=== PATIENT | male | born 1985 | race Caucasian/White ===

== ENCOUNTER 2016-11-04 22:41 | Emergency (ER) | payer OTHER ==
[2016-11-04 22:47] VITALS: BMI 29.9
[2016-11-04 22:50] VITALS: BP 133/80; PULSE 77; RESP 18; TEMP 98.1; O2SAT 98
[2016-11-04] MEDS ORDERED: Phenylephrine 0.5% Nasal Spray NAS STA (23:03)
--- NOTE | 2016-11-04 23:09 | ED PDOC ---
HPI: CCC, URI, Sore Throat Time Seen by Provider: 11/04/16 23:07 Chief Complaint (Nursing): ENT Problem Chief Complaint (Provider): epistaxis History Per: Patient (31 y/o male here for epistaxis today. Patient states he manipulated nose digitally and subsequently have heavy nose bleed. Has had intermittent h/o epistaxis in past but not recent. No trauma otherwise. No cocaine use.) Past Medical History Reviewed: Historical Data, Nursing Documentation, Vital Signs Vital Signs: Last Vital Signs Temp 98.1 F 11/04/16 22:48 Pulse 77 11/04/16 22:48 Resp 18 11/04/16 22:48 BP 133/80 11/04/16 22:48 Pulse Ox 98 11/04/16 22:48 - Home Medications Home Medications: Ambulatory Orders Medication Instructions Recorded Azithromycin [Zithromax Z-Antoni] 250 mg PO DAILY #5 tab 08/29/14 Prednisone 2 tab PO DAILY #10 tab 08/29/14 Ibuprofen 600 mg PO Q8H PRN #60 tab 09/06/15 Oseltamivir Phosphate [Tamiflu] 75 mg PO BID #10 capsule 09/06/15 Promethazine HCl/Codeine 5 ml PO Q6H PRN #120 ml 09/06/15 [Promethazine HCl-Codeine Phosphate 10 mg/5 ml] Naproxen [Naprosyn Tab] 375 mg PO Q8 PRN #21 tab 08/24/16 diaZEpam [Valium] 5 mg PO Q6 PRN #6 tab 08/24/16 - Allergies Allergies/Adverse Reactions: Allergies Allergy/AdvReac Type Severity Reaction Status Date / Time No Known Allergies Allergy Verified 11/04/16 22:47 Review of Systems ROS Statement: Except As Marked, All Systems Reviewed And Found Negative ENT: Positive for: Other (nosebleed) Physical Exam - Reviewed Nursing Documentation Reviewed: Yes Vital Signs Reviewed: Yes - Physical Exam Appears: Positive for: Well, Non-toxic, No Acute Distress Head Exam: Positive for: ATRAUMATIC, NORMAL INSPECTION, NORMOCEPHALIC Skin: Positive for: Normal Color, Warm, DRY Eye Exam: Positive for: EOMI, Normal appearance, PERRL ENT: Negative for: Normal ENT Inspection ( small amount of bleeding noted anterior right nare medial aspect) Neck: Positive for: Normal, Painless ROM Cardiovascular/Chest: Positive for: Regular Rate, Rhythm Respiratory: Positive for: CNT, Normal Breath Sounds Gastrointestinal/Abdominal: Positive for: Normal Exam, Bowel Sounds, Soft Back: Positive for: Normal Inspection Extremity: Positive for: Normal ROM Neurologic/Psych: Positive for: Alert, Oriented - ECG O2 Sat by Pulse Oximetry: 98 - Progress ED Course And Treament: Neosynephrine 0.5% soaked guaze placed in bilateral nare in ED with control of bleeding. Disposition - Clinical Impression Clinical Impression: Epistaxis - Patient ED Disposition Is Patient to be Admitted: No - Disposition Referrals: Ry Kamara MD [Staff Provider] - Disposition: Routine/Home Disposition Time: 23:09 Condition: FAIR Instructions: Nosebleed (ED)
== END 2016-11-04 23:58 | disposition home or self-care (01) ==
LOC: H.ER 22:41
DX: R04.0 Epistaxis (principal)

== ENCOUNTER 2016-12-13 21:21 | Emergency (ER) | payer OTHER ==
[2016-12-13 21:22] VITALS: BMI 29.9
[2016-12-13] MEDS ORDERED: diaZEpam 10 mg/2 ml Inj IM ONE (21:46)
[2016-12-13 21:49] VITALS: BP 127/77; PULSE 75; RESP 16; TEMP 99.1; O2SAT 100
--- NOTE | 2016-12-13 21:49 | ED PDOC ---
HPI: General Adult Time Seen by Provider: 12/13/16 21:30 Chief Complaint (Nursing): Upper Extremity Problem/Injury Chief Complaint (Provider): Right neck spasm History Per: Patient History/Exam Limitations: no limitations Onset/Duration Of Symptoms: Hrs Have you had recent travel within the past 21 days to any of the following countries: [place], [place], [place] or [place]?: No Current Symptoms Are (Timing): Still Present Additional History Per: Patient Additional Complaint(s): The pt is a 31yo male, no pertinent PMHx, presents to the ED for evaluation of spasms on his right neck since earlier today. Pt reports he had the first episode earlier this morning while attempting to shave his head with following episodes worsening throughout the day. Pt reports he took Motrin 800 mg and a muscle relaxer (unknown name) with no relief. He reports some associated headache as well as nausea due to the pain. Pt offers no additional medical complaints. Past Medical History Reviewed: Historical Data, Nursing Documentation, Vital Signs Vital Signs: Last Vital Signs Temp 99.1 F 12/13/16 21:32 Pulse 75 12/13/16 21:32 Resp 16 12/13/16 21:32 BP 127/77 12/13/16 21:32 Pulse Ox 100 12/13/16 21:51 - Medical History PMH: No Chronic Diseases - Surgical History Surgical History: No Surg Hx - Family History Family History: States: Unknown Family Hx - Home Medications Home Medications: Ambulatory Orders Medication Instructions Recorded Azithromycin [Zithromax Z-Antoni] 250 mg PO DAILY #5 tab 08/29/14 Prednisone 2 tab PO DAILY #10 tab 08/29/14 Ibuprofen 600 mg PO Q8H PRN #60 tab 09/06/15 Oseltamivir Phosphate [Tamiflu] 75 mg PO BID #10 capsule 09/06/15 Promethazine HCl/Codeine 5 ml PO Q6H PRN #120 ml 09/06/15 [Promethazine HCl-Codeine Phosphate 10 mg/5 ml] Naproxen [Naprosyn Tab] 375 mg PO Q8 PRN #21 tab 08/24/16 diaZEpam [Valium] 5 mg PO Q6 PRN #6 tab 08/24/16 Cetirizine HCl [Zyrtec] 10 mg PO DAILY #15 capsule 11/04/16 Fluticasone Nasal [Flonase] 2 actuation NS DAILY #1 spr 11/04/16 Cyclobenzaprine [Cyclobenzaprine 10 mg PO BID #14 tab 12/13/16 HCl] Ibuprofen [Motrin] 400 mg PO Q6 #30 tab 12/13/16 - Allergies Allergies/Adverse Reactions: Allergies Allergy/AdvReac Type Severity Reaction Status Date / Time No Known Allergies Allergy Verified 11/04/16 22:47 Review of Systems ROS Statement: Except As Marked, All Systems Reviewed And Found Negative Gastrointestinal: Positive for: Nausea Musculoskeletal: Positive for: Neck Pain (right sided neck spasm) Neurological: Positive for: Headache (mild) Physical Exam - Reviewed Nursing Documentation Reviewed: Yes Vital Signs Reviewed: Yes - Physical Exam Appears: Positive for: Well, Non-toxic, No Acute Distress Head Exam: Positive for: ATRAUMATIC, NORMAL INSPECTION, NORMOCEPHALIC Skin: Positive for: Normal Color, Warm, DRY Eye Exam: Positive for: Normal appearance Neck: Positive for: Decreased ROM (due to pain and spasm. spasm noted to right SCM) Cardiovascular/Chest: Positive for: Regular Rate, Rhythm Respiratory: Positive for: Normal Breath Sounds. Negative for: Respiratory Distress Neurologic/Psych: Positive for: Alert, Oriented - ECG O2 Sat by Pulse Oximetry: 100 (RA) Pulse Ox Interpretation: Normal Medical Decision Making Medical Decision Making: Time: 2144 Impression: Right SCM spasm Plan: -- Valium 5 mg IM -- Toradol 30 mg IM pt pain improved in ED d/c with flexril motrin for pain advised to have pmd f.u and or f.u with PTx pt well appearing nontoxic and understands Scribe Attestation: Documented by Ghazala Cantrell acting as a scribe for UGO Bryant Provider Attestation: All medical record entries made by the Scribe were at my direction and personally dictated by me. I have reviewed the chart and agree that the record accurately reflects my personal performance of the history, physical exam, medical decision making, and the department course for this patient. I have also personally directed, reviewed, and agree with the discharge instructions and disposition. Disposition - Clinical Impression Clinical Impression: Muscle spasm - Patient ED Disposition Is Patient to be Admitted: No Counseled Patient/Family Regarding: Diagnosis, Need For Followup, Rx Given - Disposition Disposition: Routine/Home Disposition Time: 22:29 Condition: STABLE Prescriptions: Cyclobenzaprine [Cyclobenzaprine HCl] 10 mg PO BID #14 tab Ibuprofen [Motrin] 400 mg PO Q6 #30 tab Instructions: Muscle Spasm (ED) Forms: [facility] ED School/Work Excuse
== END 2016-12-13 22:52 | disposition home or self-care (01) ==
LOC: H.ER 21:21
DX: M62.830 Muscle spasm of back (principal)

== ENCOUNTER 2018-02-01 01:34 | Emergency (ER) | payer OTHER ==
[2018-02-01 01:34] VITALS: BMI 29.9
[2018-02-01 01:54] VITALS: BP 145/83; PULSE 66; RESP 16; TEMP 98.2; O2SAT 97
--- NOTE | 2018-02-01 02:14 | ED PDOC ---
Upper Extremity Pain/Injury Time Seen by Provider: 02/01/18 01:44 Chief Complaint (Nursing): Finger,Hand,&Wrist Chief Complaint (Provider): Hand Pain History Per: Patient Additional Complaint(s): 33 yo male, no PMH, presents to ED for evaluation of right hand injury. Pt punched a wall with his right hand 2 nights ago and has continued pain and swelling to 2-3 MCP joints as well as wrist. Pt has not taken anything for pain thus far. Past Medical History Reviewed: Nursing Documentation, Vital Signs Vital Signs: Last Vital Signs Temp 98.2 F 02/01/18 01:53 Pulse 66 02/01/18 01:53 Resp 16 02/01/18 01:53 BP 145/83 02/01/18 01:53 Pulse Ox 97 02/01/18 01:53 - Medical History PMH: No Chronic Diseases - Surgical History Surgical History: No Surg Hx - Family History Family History: States: Unknown Family Hx - Living Arrangements Living Arrangements: With Family - Social History Current smoker - smoking cessation education provided: No Alcohol: Social Drugs: Denies - Home Medications Home Medications: Ambulatory Orders Medication Instructions Recorded Azithromycin [Zithromax Z-Antoni] 250 mg PO DAILY #5 tab 08/29/14 Prednisone 2 tab PO DAILY #10 tab 08/29/14 Ibuprofen 600 mg PO Q8H PRN #60 tab 09/06/15 Oseltamivir Phosphate [Tamiflu] 75 mg PO BID #10 capsule 09/06/15 Promethazine HCl/Codeine 5 ml PO Q6H PRN #120 ml 09/06/15 [Promethazine HCl-Codeine Phosphate 10 mg/5 ml] Naproxen [Naprosyn Tab] 375 mg PO Q8 PRN #21 tab 08/24/16 diaZEpam [Valium] 5 mg PO Q6 PRN #6 tab 08/24/16 Cetirizine HCl [Zyrtec] 10 mg PO DAILY #15 capsule 11/04/16 Fluticasone Nasal [Flonase] 2 actuation NS DAILY #1 spr 11/04/16 Cyclobenzaprine [Cyclobenzaprine 10 mg PO BID #14 tab 12/13/16 HCl] Ibuprofen [Motrin] 400 mg PO Q6 #30 tab 12/13/16 Ibuprofen [Motrin] 600 mg PO Q6 #20 tab 02/01/18 - Allergies Allergies/Adverse Reactions: Allergies Allergy/AdvReac Type Severity Reaction Status Date / Time No Known Allergies Allergy Verified 11/04/16 22:47 Review of Systems ROS Statement: Except As Marked, All Systems Reviewed And Found Negative Musculoskeletal: Positive for: Hand Pain Physical Exam - Reviewed Nursing Documentation Reviewed: Yes Vital Signs Reviewed: Yes - Physical Exam Appears: Positive for: Well, Non-toxic, No Acute Distress Head Exam: Positive for: ATRAUMATIC, NORMAL INSPECTION, NORMOCEPHALIC Skin: Positive for: Normal Color, Warm, DRY Eye Exam: Positive for: EOMI, Normal appearance, PERRL ENT: Positive for: Normal ENT Inspection Neck: Positive for: Normal, Painless ROM Cardiovascular/Chest: Positive for: Regular Rate, Rhythm Respiratory: Positive for: CNT, Normal Breath Sounds Gastrointestinal/Abdominal: Positive for: Normal Exam, Soft Back: Positive for: Normal Inspection Extremity: Positive for: Normal ROM, Tenderness (2-3 mcp joints, and radial aspect of wrist), Swelling (mild edema). Negative for: Deformity Neurologic/Psych: Positive for: Alert, Oriented - ECG O2 Sat by Pulse Oximetry: 97 Medical Decision Making Medical Decision Making: XR: NAD, as read by NARDA Pt placed in wrist splint and medicated with Motrin PO Educated on results and RICE therapy advised Disposition - Clinical Impression Clinical Impression: Wrist sprain, Hand pain - Patient ED Disposition Is Patient to be Admitted: No - Disposition Disposition: Routine/Home Disposition Time: 03:25 Condition: STABLE Prescriptions: Ibuprofen [Motrin] 600 mg PO Q6 #20 tab Instructions: Wrist Sprain (DC), Hand Pain (DC) Forms: [facility] (Hebrew), [facility] ED School/Work Excuse
--- NOTE | 2018-02-01 08:44 | RAD ---
Date of service: 02/01/2018 PROCEDURE: Right Wrist Radiographs. HISTORY: punched a wall COMPARISON: None. FINDINGS: BONES: Bone alignment and mineralization are normal. There is a 2 mm or ossific density dorsal to the proximal carpal row on lateral projection. JOINTS: Normal. No dislocation. SOFT TISSUES: There is mild dorsal soft tissue swelling. OTHER FINDINGS: None. IMPRESSION: 2 mm ossific density dorsal to the proximal carpal row on the lateral projection may represent a chip fracture or foreign body. Clinical follow-up is advised.
--- NOTE | 2018-02-01 08:45 | RAD ---
PROCEDURE: Right Hand Radiographs. HISTORY: punched a wall COMPARISON: None. FINDINGS: BONES: Bone alignment and mineralization are normal. There is no acute displaced fracture or bone destruction. JOINTS: Normal. No osteoarthritic changes. SOFT TISSUES: Normal. OTHER FINDINGS: None. IMPRESSION: No acute fracture or dislocation in the hand.
== END 2018-02-01 03:20 | disposition home or self-care (01) ==
LOC: H.ER 01:34
DX: S63.91XA Sprain of unspecified part of right wrist and hand, initial encounter (principal); W22.01XA Walked into wall, initial encounter; Y92.89 Other specified places as the place of occurrence of the external cause